=== PATIENT | male | born 1960 | race African-American/Black ===

== ENCOUNTER 2024-01-15 05:10 | Emergency (ER) | payer OTHER ==
[2024-01-15 05:18] VITALS: RESP 26; TEMP 97.8; BMI 28.5
[2024-01-15 06:44] VITALS: BP 130/72; PULSE 70
== END 2024-01-15 06:44 | disposition home or self-care (01) ==
LOC: JER 05:10
DX: R33.9 Retention of urine, unspecified (principal); R30.0 Dysuria
CPT/HCPCS: 99283-25

== ENCOUNTER 2024-01-16 14:36 | Emergency (ER) | payer OTHER ==
[2024-01-16 14:48] VITALS: RESP 16; BMI 24.5
[2024-01-16] MEDS: CEFPODOXIME PROXETIL 100 MG TABLET PO ONE (15:40)
[2024-01-16 17:07] LABS: HEMATOCRIT 39.6 % (35.4-49); HEMOGLOBIN 13.4 GM/dL (11.7-16.9); MCH 33.8 pg (25.7-33.7); MEAN CELL VOLUME 99.5 fl (80-96); MEAN PLT VOLUME 7.4 fl (7.5-11.1); PLATELET COUNT 218 10^3/uL (134-434); RBC 3.98 M/mm3 (4.00-5.60); WHITE BLOOD COUNT 9.4 K/mm3 (4.0-10.0)
[2024-01-16 17:14] LABS: EPI CELLS 8 /uL (0-25.1); HYALINE CASTS 1 /uL (0-3.1); URINE APPEARANCE CLEAR; URINE BACTERIA 3 /uL (0-1359); URINE BILIRUBIN NEGATIVE (NEGATIVE); URINE COLOR ORANGE; URINE GLUCOSE (UA) NEGATIVE (NEGATIVE); URINE KETONE NEGATIVE (NEGATIVE); URINE LEUK ESTERASE 1+ (NEGATIVE); URINE NITRITE NEGATIVE (NEGATIVE); URINE PROTEIN 1+ (NEGATIVE); URINE RBC 5428 /uL (0-23.9); URINE UROBILINOGEN 0.2 mg/dL (0.2-1.0); URINE WBC 133 /uL (0-25.8)
[2024-01-16 17:15] LABS: INR 1.29 (0.83-1.09); PROTHROMBIN TIME (PATIENT) 14.7 SEC (9.7-13.0)
[2024-01-16 17:49] LABS: POTASSIUM 3.9 mmol/L (3.5-5.1)
[2024-01-16 17:51] LABS: CALCIUM 9.4 mg/dL (8.5-10.1)
[2024-01-16 17:52] LABS: BLOOD UREA NITROGEN 10.6 mg/dL (7-18)
[2024-01-16 17:55] LABS: CREATININE 0.8 mg/dL (0.55-1.3)
[2024-01-16 17:56] LABS: BILIRUBIN,TOTAL 1.1 mg/dL (0.2-1); TOT PROT 6.6 g/dl (6.4-8.2)
[2024-01-16 18:05] VITALS: BP 140/73; PULSE 62; TEMP 98.5
== END 2024-01-16 18:49 | disposition home or self-care (01) ==
LOC: JER 14:36
DX: R31.9 Hematuria, unspecified (principal); T83.031A Leakage of indwelling urethral catheter, initial encounter; Y83.1 Surgical operation with implant of artificial internal device as the cause of abnormal reaction of the patient, or of later complication, without mention of misadventure at the time of the procedure
CPT/HCPCS: 36415; 80053; 81003; 85027; 85610; 87086; 99283-25

== ENCOUNTER 2024-02-04 13:58 | Emergency (ER) | payer OTHER ==
[2024-02-04 14:51] VITALS: RESP 19; BMI 25.0
[2024-02-04 16:41] LABS: BASO % 0.7 % (0-2.0); EOS % 1.3 % (0-4.5); HEMATOCRIT 41.6 % (35.4-49); HEMOGLOBIN 13.9 GM/dL (11.7-16.9); MCH 33.1 pg (25.7-33.7); MCHC 33.4 g/dl (32.0-35.9); MEAN CELL VOLUME 99.3 fl (80-96); MEAN PLT VOLUME 7.7 fl (7.5-11.1); MONO % 9.9 % (3.8-10.2); NEUT % 61.1 % (42.8-82.8); PLATELET COUNT 279 10^3/uL (134-434); RBC 4.19 M/mm3 (4.00-5.60); RDW 13.3 % (11.9-15.9); WHITE BLOOD COUNT 7.2 K/mm3 (4.0-10.0)
[2024-02-04 16:48] LABS: INR 1.2 (0.83-1.09); PROTHROMBIN TIME (PATIENT) 13.7 SEC (9.7-13.0)
[2024-02-04 16:51] LABS: ACTIVATED PTT 35.9 SECONDS (25.2-36.5)
[2024-02-04 17:02] LABS: POTASSIUM 4.2 mmol/L (3.5-5.1)
[2024-02-04 17:03] LABS: CALCIUM 10.2 mg/dL (8.5-10.1)
[2024-02-04 17:04] LABS: ALBUMIN 4.1 g/dl (3.4-5.0); BLOOD UREA NITROGEN 16.7 mg/dL (7-18)
[2024-02-04 17:05] VITALS: BP 113/68; PULSE 75
[2024-02-04 17:07] LABS: CREATININE 1.5 mg/dL (0.55-1.3)
[2024-02-04 17:08] LABS: BILIRUBIN,TOTAL 0.8 mg/dL (0.2-1); TOT PROT 7.3 g/dl (6.4-8.2)
[2024-02-04] MEDS ORDERED: MAG HYDROX/AL HYDROX/SIMETH 30 ML UNIT-DOSE CUP ONE (17:09)
[2024-02-04] MEDS ORDERED: ACETAMINOPHEN INJECTION 100 ML ONE (17:09)
[2024-02-04] MEDS ORDERED: ONDANSETRON 4 MG/2 ML VIAL ONE (17:09)
[2024-02-04] MEDS ORDERED: FAMOTIDINE 20 MG/50 ML IVPB 20 MG/50 ML MG IVPB ONE (17:10)
[2024-02-04] MEDS: ACETAMINOPHEN 1000 MG/100 ML BAG IVPB ONE (17:23)
[2024-02-04] MEDS: FAMOTIDINE 20 MG/50 ML IVPB 20 MG/50 ML MG IVPB ONE (17:23)
[2024-02-04] MEDS: MAG HYDROX/AL HYDROX/SIMETH 30 ML UNIT-DOSE CUP PO ONE (17:23)
[2024-02-04] MEDS: ONDANSETRON 4 MG/2 ML VIAL IVPUSH ONE (17:23)
[2024-02-04 18:00] LABS: HIV INTERPRETATION NEGATIVE (NEGATIVE)
[2024-02-04] MEDS: SODIUM CHLORIDE 0.9% 500 ML INFUS.BAG IV ONE (18:12)
== END 2024-02-04 21:04 | disposition left against medical advice (07) ==
LOC: JER 13:58
PROC: 3E033GC Introduction of Other Therapeutic Substance into Peripheral Vein, Percutaneous Approach (ICD-10-PCS; principal; 2024-02-04)
PROC: 3E033GC Introduction of Other Therapeutic Substance into Peripheral Vein, Percutaneous Approach (ICD-10-PCS; 2024-02-04)
PROC: 3E033NZ Introduction of Analgesics, Hypnotics, Sedatives into Peripheral Vein, Percutaneous Approach (ICD-10-PCS; 2024-02-04)
DX: R07.89 Other chest pain (principal); R61 Generalized hyperhidrosis; R53.1 Weakness; R11.0 Nausea; Z20.822 Contact with and (suspected) exposure to COVID-19
CPT/HCPCS: 0241U-QW; 36415; 71045-TC-FY; 73630-TC-LT; 80053; 84484; 85025; 85610; 85730; 86803; 87389; 93005; 93010; 99285-25; J0131